=== PATIENT | male | born 1960 | race African-American/Black ===

== ENCOUNTER 2018-04-25 13:53 | Emergency (ER) | payer OTHER ==
[~2018-04-25] VITALS: Ht 180.3 cm; Wt 93.4 kg
[~2018-04-25 13:53] MED LIST: AMLODIPINE10 MG PO; CLEOCIN HCL300 MG PO; NAPROXEN500 MG PO; PERCOCET 325 MG1 TA2 PO; ULTRACET 325 MG1 TAB PO
[2018-04-25 14:07] VITALS: BP 128/84
[2018-04-25] MEDS ORDERED: KEFLEX500 M1 PO (16:31)
--- NOTE | 2018-04-25 16:32 | ED UPPER/LOWER EXTREMITY COMPL ---
History of Present Illness General Chief Complaint: Laceration Procedure Stated Complaint: LAC TO ANTERIOR PORTION OF LEFT THIGH Source: patient Exam Limitations: no limitations Vital Signs & Intake/Output Vital Signs & Intake/Output Vital Signs Date Time Temp Pulse Resp B/P B/P Pulse O2 O2 Flow FiO2 Mean Ox Delivery Rate 04/25 1407 96.4 64 20 128/84 97 Room Air Allergies Coded Allergies: NO KNOWN ALLERGIES (NONE 04/25/18) Reconcile Medications Acetaminophen/Tramadol Holder (Ultracet Tablet) 1 EACH TABLET 1 TAB PO Q6 BREAKTHROUGH PAIN Amlodipine Besylate (Amlodipine) 10 MG TABLET 1 TAB PO DAILY BP (Reported) Cephalexin (Keflex) 500 MG CAPSULE 1 CAP PO TID WOUND CLINDAMYCIN HCL (Cleocin HCl) 300 MG CAPSULE 1 CAP PO TID DENTAL ABSCESS Naproxen 500 MG TABLET 1 TAB PO BID PAIN OXYCODONE HCL/ACETAMINOPHEN (Percocet 5-325 MG Tablet) 325 MG/5 MG TAB 1-2 TAB PO Q4-6 PRN PRN PAIN Triage Note: PT TO ED C/O LAC TO LEFT UPPER THIGH FROM RAZOR HAPPENED AROUND 5PM YESTERDAY. UNKNOWN LAST TETANUS SHOT. LARGE LAC NOTED, BLEEDING CONTROLLED. 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 Triage Nurses Notes Reviewed? yes Onset: Abrupt Duration: day(s): (yesterday evenoing 6 pm) Timing: recent history Pain/Injury Location: Left: Leg. No Modifying Factors: none HPI: 57-year-old male comes into the emergency room with laceration to left thigh. Patient reports that yesterday he cut himself with a aging box hand by accident. He decided to leave it last night. He comes in today. It occurred yesterday around 6 PM. Last tetanus shot unknown. Throbbing pain. No active bleeding currently. Comes in for further evaluation. (Dann Gil) Past History Travel History Traveled to [place] past 21 day No Medical History Any Pertinent Medical History? 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 No (Dann Gil) Review of Systems Review of Systems Constitutional: Reports: no symptoms. EENTM: Reports: no symptoms. Respiratory: Reports: no symptoms. Cardiovascular: Reports: no symptoms. Gastrointestinal/Abdominal: Reports: no symptoms. Genitourinary: Reports: no symptoms. Musculoskeletal: Reports: see HPI. Skin: Reports: see HPI. Neurological/Psychological: Reports: no symptoms. Hematologic/Endocrine: Reports: no symptoms. Immunological: Reports: no symptoms. All Other Systems: Reviewed and Negative (Dann Gil) Physical Exam Physical Exam General Appearance: well developed/nourished, mild distress Head: atraumatic Eyes: Bilateral: normal appearance. Ears, Nose, Throat: normal ENT inspection, hearing grossly normal Neck: normal inspection Cardiovascular/Respiratory: no respiratory distress Back: normal inspection Leg Left: proximally 5 inch laceration gaping to left thigh,exposing fat, no muscle or fascia seen, no active bleeding Neurologic/Tendon: normal sensation, normal motor functions, normal tendon functions, responds to pain, no evidence tendon injury, no pulse deficit Skin: intact, normal color, warm/dry (Dann Gil) Progress Differential Diagnosis: contusion, fracture, soft tissue foreign body, ,nerve damage, Plan of Care: 04/25/2018 4:44:07 PM Laceration was less than 24 hours. Due to the large laceration and the fact that it was very keeping it was close. Patient was started on oral antibiotics. It was irrigated and cleaned very well with high-pressure saline. Patient tolerated procedure. (Dann Gil) Departure Departure Disposition: HOME OR SELF CARE Condition: Stable Clinical Impression Primary Impression: Laceration of left thigh Referrals: Patient Has No Primary Care Dr (PCP/Family) Additional Instructions: Return in 3 days for wound check. Take Keflex as prescribed. Return in 10-12 days for suture removal. Watch for signs of infection such as redness on discharge fever chills. Please go over all results of today's visit with your primary care doctor. Contact your primary care doctor to let them know you were here in the emergency room. There may be nonspecific findings which may not be related to your visit today here in the emergency room but may require further evaluation and chronic monitoring by your primary care doctor. If you had a laceration today the chance of foreign body always remains. You should follow-up with your primary care doctor for recheck in 3-5 days for a wound check. If you had an x-ray done there is a chance that a fracture could have been missed on initial read and you should follow-up with your primary care doctor for repeat x-rays if symptoms persist. If your blood pressure was elevated here in the emergency room please have rechecked by joshua primary care doctor within the next 48. If you were prescribed a narcotic here in the emergency room or any type of controlled substances you're not allowed to drive while taking this medication or operate any type of heavy machinery. Narcotics can make you feel lightheaded dizziness nausea and can cause constipation. You may need to citrus picker a stool softener. Thank you for choosing [facility] emergency room. Please return to the emergency room immediately if you have any other concerns worsening of symptoms. Departure Forms: Customer Survey General Discharge Information Prescriptions: Current Visit Scripts Cephalexin (Keflex) 1 CAP PO TID #21 CAP (Dann Gil) PA/BIZTALK CONSULTANT Co-Sign Statement Statement: ED Attending supervision documentation- [] I saw and evaluated the patient. I have also reviewed all the pertinent lab results and diagnostic results. I agree with the findings and the plan of care as documented in the PA's/BIZTALK CONSULTANT's documentation. [X] I have reviewed the ED Record and agree with the PA's/BIZTALK CONSULTANT's documentation. [] Additions or exceptions (if any) to the PAs/BIZTALK CONSULTANT's note and plan are summarized below: [] (Ange AIKEN,Guillermo Velasco) Procedures Laceration/Wound Repair Progress: 5 inch laceration to left thigh, gaping, 1% lidocaine with epinephrine, approximately 12 mL injected, irrigated with peroxide and copious amounts of high pressure saline, 3. 0 nylon, 3 horizontal mattress sutures placed, 9 simple interrupted sutures placed, sterile technique, tissue debridement, patient tolerated procedure, (Dann Gil)
[2018-04-25] MEDS ORDERED: MOBIC15 M1 PO (20:36)
== END 2018-04-25 16:45 ==
LOC: ERH 13:53
DX: S71.112A Laceration without foreign body, left thigh, initial encounter (principal); W45.8XXA Other foreign body or object entering through skin, initial encounter
CPT/HCPCS: 90471; 90714